=== PATIENT | male | born 1980 | race Native Hawaiian/Other Pacific Islander ===

== ENCOUNTER 2018-09-14 09:43 | Emergency (ER) | payer OTHER ==
[2018-09-14 09:57] VITALS: BMI 22.6
[2018-09-14] MEDS ORDERED: Sodium Chloride 0.9% 1,000 ML IV ONE ×2 (10:46→12:48)
[2018-09-14] MEDS ORDERED: Sodium Chloride 0.9% 1,000 ML ONE ×2 (11:00→12:53)
[2018-09-14 11:20] LABS: EOS # 0.1 K/uL (0.0-0.7); MONO # 0.4 K/uL (0.0-0.8); NRBC % 0.1 % (0.0-2.0)
[2018-09-14 11:26] LABS: BASO % 0.4 % (0.0-2.0); EOS % 0.8 % (0.0-4.0); HEMOGLOBIN 15.5 g/dL (12.0-18.0); LYMPH # 1.7 K/uL (1.0-4.3); LYMPH % 17.8 % (20.0-40.0); MEAN CELL VOLUME 89.1 fL (80.0-94.0); MEAN CORPUSCULAR HEMOGLOBIN 29.6 pg (27.0-31.0); MEAN CORPUSCULAR HGB CONC 33.2 g/dL (33.0-37.0); MEAN PLATELET VOLUME 9.8 fL (7.2-11.7); MONO % 4.4 % (0.0-10.0); NEUT # 7.2 K/uL (1.8-7.0); NEUT % 76.6 % (50.0-75.0); RBC 5.23 Mil/uL (4.40-5.90); RED CELL DISTRIBUTION WIDTH 12.5 % (11.5-14.5); WHITE BLOOD COUNT 9.4 K/uL (4.8-10.8)
[2018-09-14 11:49] LABS: ALB/GLOB RATIO 1.7 (1.0-2.1); BLOOD UREA NITROGEN 13 mg/dL (9-20); CALCIUM 9.3 mg/dl (8.6-10.4); GFR NON-AFRICAN AMERICAN > 60
[2018-09-14 11:54] LABS: ALT/SGPT 54 U/L (21-72); AST/SGOT 50 U/L (17-59)
--- NOTE | 2018-09-14 11:58 | CT ---
Date of service: 09/14/2018 PROCEDURE: CT HEAD WITHOUT CONTRAST. HISTORY: SEVERE VERTIGO, [place] COMPARISON: None available TECHNIQUE: Axial computed tomography images were obtained through the head/brain without intravenous contrast. Radiation dose: Total exam DLP = 1161.62 mGy-cm. This CT exam was performed using one or more of the following dose reduction techniques: Automated exposure control, adjustment of the mA and/or kV according to patient size, and/or use of iterative reconstruction technique. FINDINGS: HEMORRHAGE: No intracranial hemorrhage. BRAIN: No mass effect or edema. The walton-white matter differentiation appears intact. Please note that MRI with diffusion imaging is more sensitive in the detection of acute ischemic event. VENTRICLES: No hydrocephalus. CALVARIUM: Unremarkable. PARANASAL SINUSES: Unremarkable as visualized. No significant inflammatory changes. MASTOID AIR CELLS: Unremarkable as visualized. No inflammatory changes. OTHER FINDINGS: None. IMPRESSION: No acute intracranial pathology identified.
--- NOTE | 2018-09-14 12:04 | C.PDOC ---
History Of Present Illness 38 year old male who presents to the ED c/o dizziness (room spinning around him) with associated nausea and vomiting since 8am this morning. Patient states that his symptoms worsen with head movements and that he has had similar milder symptoms in the past 1 week, but they became more severe today. He denies any visual changes, facial droop, slurred speech, extremity weakness, sensory changes, CP, SOB, and palpitations. Time Seen by Provider: 09/14/18 09:58 Chief Complaint (Nursing): Dizziness/Lightheaded History Per: Patient History/Exam Limitations: no limitations Onset/Duration Of Symptoms: Hrs (8am ) Current Symptoms Are (Timing): Still Present Fall Associated With With Symptoms: No Recent travel outside of the [place]: No Additional History Per: Patient Past Medical History Reviewed: Historical Data, Nursing Documentation, Vital Signs - Medical History PMH: No Chronic Diseases Surgical History: No Surg Hx Family History: States: Unknown Family Hx - Social History Hx Alcohol Use: No Hx Substance Use: No - Immunization History Hx Tetanus Toxoid Vaccination: No Hx Influenza Vaccination: No Hx Pneumococcal Vaccination: No Review Of Systems Cardiovascular: Negative for: Chest Pain, Palpitations Respiratory: Negative for: Shortness of Breath Gastrointestinal: Positive for: Nausea, Vomiting Neurological: Positive for: Dizziness. Negative for: Weakness (extremity ), Change in Speech (slurred), Other (visual changes, facial droop or sensory changes) Physical Exam - Physical Exam Appears: Well, Other (uncomfortable ) Skin: Normal Color, Warm, Dry Head: Atraumatic, Normacephalic Eye(s): bilateral: PERRL, EOMI, Other (horizontal nystagmus ) Oral Mucosa: Moist Neck: Normal ROM, Supple Chest: Symmetrical, No Deformity Cardiovascular: Rhythm Regular, No Murmur Respiratory: Normal Breath Sounds, No Rales, No Rhonchi, No Wheezing Gastrointestinal/Abdominal: Normal Exam, Bowel Sounds, Soft, No Tenderness Extremity: Normal ROM Extremity: Bilateral: Atraumatic Neurological/Psych: Oriented x3, Normal Speech, Normal Cognition, Normal Cranial Nerves, No Cerebellar Signs, Normal Motor, Normal Sensation ED Course And Treatment - Laboratory Results Result Diagrams: 09/14/18 11:14 09/14/18 11:14 Lab Results: Total Bilirubin 0.9 mg/dL (0.2-1.3) 09/14/18 11:14 AST 50 U/L (17-59) 09/14/18 11:14 ALT 54 U/L (21-72) 09/14/18 11:14 Alkaline Phosphatase 65 U/L (38-126) 09/14/18 11:14 Total Protein 8.0 g/dL (6.3-8.3) 09/14/18 11:14 Albumin 5.0 g/dL (3.5-5.0) 09/14/18 11:14 Globulin 3.0 gm/dL (2.2-3.9) 09/14/18 11:14 Albumin/Globulin Ratio 1.7 (1.0-2.1) 09/14/18 11:14 O2 Sat by Pulse Oximetry: 100 (RA) Pulse Ox Interpretation: Normal - CT Scan/US CAT Head Other Rad Studies (CT/US): Read By Radiologist, Radiology Report Reviewed Progress Note: Blood work, UA, UDS, CT head ordered and reviewed. Patient given IV NS bolus, PO Meclizine, IV zofran. On reassessment, patient improved but still has mild dizziness - IV NS bolus, IV ativan given. Disposition - Disposition Referrals: Sudhakar Malik MD [Staff Provider] - Disposition Time: 13:00 Condition: STABLE Prescriptions: Meclizine [Meclizine*] 25 mg PO Q6 #20 tab Forms: [facility] ([place]) - Clinical Impression Clinical Impression: Peripheral vertigo - Scribe Statement The provider has reviewed the documentation as recorded by the Henrry Wright All medical record entries made by the Scribe were at my direction and personally dictated by me. I have reviewed the chart and agree that the record accurately reflects my personal performance of the history, physical exam, medical decision making, and the department course for this patient. I have also personally directed, reviewed, and agree with the discharge instructions and disposition. Physician Patient Turnover Patient Signed Over To: Olive Yeager Handoff Comments: pending reassessment after IV fluids, IV ativan
[2018-09-14 12:56] LABS: SQUAMOUS EPITHIAL < 1 /hpf (0-5); URINE BILIRUBIN NEGATIVE (NEGATIVE); URINE BLOOD NEGATIVE (NEGATIVE); URINE CLARITY Clear (Clear); URINE COLOR Yellow (YELLOW); URINE GLUCOSE (UA) 2+ mg/dL (Normal); URINE LEUKOCYTE ESTERASE NEG Leu/uL (Negative); URINE PROTEIN NEGATIVE (NEGATIVE); URINE UROBILINOGEN NORMAL mg/dL (0.2-1.0)
[2018-09-14 13:24] VITALS: BP 110/72; PULSE 79; RESP 18; TEMP 97.9; O2SAT 99
[2018-09-14 13:25] LABS: BARBITURATES, UR NEGATIVE (NEGATIVE); BENZODIAZEPINES, UR NEGATIVE (NEGATIVE); OPIATES, UR NEGATIVE (NEGATIVE); PHENCYCLIDINE, UR NEGATIVE (NEGATIVE)
== END 2018-09-14 15:11 | disposition home or self-care (01) ==
LOC: C.ER 09:43
DX: H81.399 Other peripheral vertigo, unspecified ear (principal)
CPT/HCPCS: 70450; 80053; 80324; 80345; 80346; 80349; 80353; 80358; 80361; 81001; 83992; 85025; 96361; 96374; 96375; 99285; J2060; J2405; J7030